=== PATIENT | male | born 1985 | race Caucasian/White ===

== ENCOUNTER 2017-01-28 22:43 | Inpatient (IN) | payer MEDICAID ==
[~2017-01-28] VITALS: Ht 175.3 cm; Wt 91.6 kg
[2017-01-28] MEDS ORDERED: MORPHINE SULFATE 4 MG/ML CPJ (NOT FOR IM USE) IV STA (23:54)
[2017-01-28] MEDS ORDERED: SODIUM CHLORIDE 0.9% 1,000 ML IV ONE (23:54)
[2017-01-28] MEDS ORDERED: ONDANSETRON HCL 4MG/2ML VIAL IV STA (23:54)
[2017-01-29] MEDS ORDERED: VANCOMYCIN 1 G PREMIX 200 ML IV ONE
[2017-01-29] MEDS ORDERED: PIPERACILLIN/TAZ 3.375G PREMIX 50 ML IV ONE
[2017-01-29 00:35] LABS: BASOPHILS % 0.6 % (0.0-2.0); EOSINOPHILS % 0.2 % (0.0-5.0); HEMATOCRIT. 34.5 % (42.0-52.0); LYMPHOCYTES % 16.3 % (20.0-50.0); MEAN CORPUSCULAR HEMOGLOBIN 28.8 pg (28.0-32.0); MEAN CORPUSCULAR VOLUME 82.4 fL (80.0-94.0); MEAN PLATELET VOLUME 6.9 fl (7.4-10.4); MONOCYTES % 7.8 % (2.0-8.0); NEUTROPHILS % 75.1 % (40.0-76.0); PLATELET 281 x1000/uL (130-400); RED BLOOD CELL COUNT 4.19 mill/uL (4.7-6.1); RED CELL DISTRIBUTION WIDTH 13.1 % (11.6-14.6)
[2017-01-29 00:43] LABS: CHLORIDE 95 mEq/L (98-107); INR 1.2
[2017-01-29 00:51] LABS: CARBON DIOXIDE 27 mEq/L (21-32)
[2017-01-29] MEDS ORDERED: BACITRACIN ZINC OINT UDPKT TOP ONE (02:30)
[2017-01-29] MEDS ORDERED: FENTANYL CITRATE/PF 50MCG/ML 2ML VIAL IV ONE ×2 (02:30→04:00)
[2017-01-29] MEDS ORDERED: LIDOCAINE HCL 1% 20ML VIAL (Pyxis) INJ MC ONE (02:30)
[2017-01-29] MEDS ORDERED: MIDAZOLAM HCL 2 MG/2 ML VIAL IV ONE ×2 (02:30→04:00)
[2017-01-29] MEDS ORDERED: MIDAZOLAM HCL 2 MG/2 ML VIAL ONE (03:53)
[2017-01-29 05:22] LABS: *AMPHETAMINES SCREEN URINE PRESUMTIVE POSITIVE (NEGATIVE); *BARBITURATES SCREEN URINE NEGATIVE (NEGATIVE); *BENZODIAZEPINES SCREEN URINE NEGATIVE (NEGATIVE); *COCAINE SCREEN URINE PRESUMTIVE POSITIVE (NEGATIVE); CANNABINOID URINE SCREEN NEGATIVE (NEGATIVE); METHADONE URINE SCREEN NEGATIVE (NEGATIVE); OPIATES URINE SCREEN PRESUMTIVE POSITIVE (NEGATIVE); PHENCYCLIDINE URINE SCREEN NEGATIVE (NEGATIVE)
[2017-01-29] MEDS ORDERED: ACETAMINOPHEN 325MG TABLET PO PRN ×2 (06:45→10:00)
[2017-01-29 08:00] VITALS: BP 99/56
[2017-01-29] MEDS: PIPERACILLIN/TAZ 3.375G PREMIX 50 ML IV SCH ×3 (08:30→22:26)
[2017-01-29] MEDS ORDERED: HYDROCODONE/ACETAMINOPHEN 5/325MG TABLET PO PRN (10:00)
[2017-01-29] MEDS ORDERED: IPRATROPIUM/ALBUTEROL 0.5-3(2.5)MG/3ML NEB INH PRN (10:00)
[2017-01-29] MEDS ORDERED: DIPHENHYDRAMINE 50MG/ML VIAL IV PRN (10:00)
[2017-01-29] MEDS ORDERED: NA PHOS,M-B/NA PHOS,DI-BA ENEMA 118ML PR PRN (10:00)
[2017-01-29] MEDS ORDERED: LORAZEPAM 1MG TABLET PO PRN (10:00)
[2017-01-29] MEDS ORDERED: DOCUSATE SODIUM 100MG CAPSULE PO PRN (10:00)
[2017-01-29] MEDS ORDERED: GUAIFENESIN 200MG/10ML SUGAR FREE UDC PO PRN (10:00)
[2017-01-29] MEDS ORDERED: ONDANSETRON HCL 4MG/2ML VIAL IV PRN (10:00)
[2017-01-29] MEDS ORDERED: PIPERACILLIN/TAZ 3.375G PREMIX 50 ML IV SCH (10:00)
[2017-01-29] MEDS ORDERED: CLONIDINE 0.1MG TABLET PO PRN (10:00)
[2017-01-29] MEDS: VANCOMYCIN 1500MG in DEXTROSE 5% WATER 250ML IV SCH ×2 (10:09→17:54)
[2017-01-29] MEDS: MULTIVITAMINS,THER W-MINERALS TABLET PO SCH (10:09)
[2017-01-29] MEDS: THIAMINE HCL 100MG TABLET PO SCH (10:09)
[2017-01-29] MEDS ORDERED: IOHEXOL-350 100 ML BOTTLE ONE (11:40)
[2017-01-29] MEDS ORDERED: SODIUM CHLORIDE 0.9% 10ML VIAL ONE (11:40)
[2017-01-29 12:00] VITALS: BP 93/50
[2017-01-29 15:56] LABS: CREATINE KINASE 76 IU/L (39-308); TROPONIN I < 0.02 ng/mL (0.00-0.04)
[2017-01-29 16:01] VITALS: BP 97/57
[2017-01-29 20:00] VITALS: BP 113/62
[2017-01-30] VITALS: BP 115/56
[2017-01-30] MEDS: VANCOMYCIN 1500MG in DEXTROSE 5% WATER 250ML IV SCH (01:24)
[2017-01-30] MEDS: PIPERACILLIN/TAZ 3.375G PREMIX 50 ML IV SCH ×4 (03:13→20:00)
[2017-01-30 04:00] VITALS: BP 112/60
[2017-01-30 06:11] LABS: BASOPHILS % 0.4 % (0.0-2.0); EOSINOPHILS % 2.1 % (0.0-5.0); HEMATOCRIT. 34.4 % (42.0-52.0); LYMPHOCYTES % 14.1 % (20.0-50.0); MEAN CORPUSCULAR HEMOGLOBIN 28.7 pg (28.0-32.0); MEAN CORPUSCULAR VOLUME 82.4 fL (80.0-94.0); MEAN PLATELET VOLUME 7.1 fl (7.4-10.4); MONOCYTES % 6.9 % (2.0-8.0); NEUTROPHILS % 76.5 % (40.0-76.0); PLATELET 274 x1000/uL (130-400); RED BLOOD CELL COUNT 4.17 mill/uL (4.7-6.1); RED CELL DISTRIBUTION WIDTH 13.1 % (11.6-14.6)
[2017-01-30 06:43] LABS: CARBON DIOXIDE 27 mEq/L (21-32); CHLORIDE 103 mEq/L (98-107); CREATINE KINASE 51 IU/L (39-308); HDL CHOLESTEROL 30 mg/dL (40-59); LDL CHOLESTEROL 74 mg/dL (5-100)
[2017-01-30 06:50] LABS: TROPONIN I < 0.02 ng/mL (0.00-0.04); VANCOMYCIN TROUGH 21.3 ug/mL (5.0-10.0)
[2017-01-30 08:00] VITALS: BP 109/65
[2017-01-30] MEDS: FOLIC ACID 1MG TABLET PO SCH (08:42)
[2017-01-30] MEDS: THIAMINE HCL 100MG TABLET PO SCH (08:42)
[2017-01-30] MEDS: MULTIVITAMINS,THER W-MINERALS TABLET PO SCH (08:42)
[2017-01-30 09:16] LABS: BG BASE EXCESS 1.1 mmol/L (-2.0-2.0); BG DEOXYHEMOGLOBIN 3.4 % (0.0-5.0); BG FRACTION INSPIRED OXYGEN 21; BG HCO3 ACT 24.2 mmol/L (22.0-26.0); BG METHEMOGLOBIN 0.3 % (0.0-1.5); BG OXYGEN SATURATION 96.6 % (92.0-98.5); BG OXYHEMOGLOBIN 96.3 % (94.0-97.0); BG PCO2 33.9 mmHg (35.0-45.0); BG PH 7.472 (7.350-7.450); BG PO2 87.2 mmHg (75.0-100.0); BG SAMPLE SITE RIGHT BRACHIAL; BG TOTAL HEMOGLOBIN 13.1 g/dL (12.0-18.0); BG VENT MODE ROOM AIR
[2017-01-30 12:00] VITALS: BP 105/53
[2017-01-30] MEDS: VANCOMYCIN 1,750 MG in DEXT 5% WATER 500 ML IV SCH ×2 (12:32→19:00)
[2017-01-30 14:33] LABS: CLARITY URINE CLEAR (CLEAR); COLOR URINE YELLOW (YELLOW); GLUCOSE URINE NEGATIVE (NEGATIVE); KETONES URINE NEGATIVE (NEGATIVE); LEUKOCYTE ESTERASE URINE NEGATIVE (NEGATIVE); NITRITE URINE NEGATIVE (NEGATIVE); OCCULT BLOOD URINE NEGATIVE (NEGATIVE); PH URINE 5.5 (4.5-8.0); PROTEIN URINE NEGATIVE (NEGATIVE); SPECIFIC GRAVITY URINE 1.067 (1.005-1.030)
[2017-01-30 20:00] VITALS: BP 103/53
[2017-01-31] VITALS: BP 112/70
[2017-01-31] MEDS: HYDROCODONE/ACETAMINOPHEN 10/325MG TABLET PO PRN ×2 (00:39→06:17)
[2017-01-31] MEDS: PIPERACILLIN/TAZ 3.375G PREMIX 50 ML IV SCH ×2 (02:00→07:54)
[2017-01-31] MEDS: VANCOMYCIN 1,750 MG in DEXT 5% WATER 500 ML IV SCH (03:00)
[2017-01-31 04:00] VITALS: BP 109/62
[2017-01-31 06:17] VITALS: BP 122/79
[2017-01-31] MEDS ORDERED: CLINDAMYCIN HCL 150MG CAPSULE PO SCH (08:30)
[2017-01-31] MEDS: FOLIC ACID 1MG TABLET PO SCH (09:02)
[2017-01-31] MEDS: MULTIVITAMINS,THER W-MINERALS TABLET PO SCH (09:02)
[2017-01-31] MEDS: THIAMINE HCL 100MG TABLET PO SCH (09:02)
== END 2017-01-31 12:14 | disposition left against medical advice (07) | DRG 720 ==
LOC: ER 22:43 → 6EST 01-29 04:02 → ENRESERV 01-29 04:21
PROVIDERS: ADMIT Internal Medicine; ATTEND Internal Medicine
PROC: 0H9CXZZ Drainage of Left Upper Arm Skin, External Approach (ICD-10-PCS; principal; 2017-01-29)
DX: A41.9 Sepsis, unspecified organism (principal); E44.1 Mild protein-calorie malnutrition; E87.1 Hypo-osmolality and hyponatremia; F11.10 Opioid abuse, uncomplicated; L03.114 Cellulitis of left upper limb; F15.10 Other stimulant abuse, uncomplicated; F14.10 Cocaine abuse, uncomplicated; F10.10 Alcohol abuse, uncomplicated; F17.200 Nicotine dependence, unspecified, uncomplicated; Z53.21 Procedure and treatment not carried out due to patient leaving prior to being seen by health care provider; L02.414 Cutaneous abscess of left upper limb; Z68.29 Body mass index [BMI] 29.0-29.9, adult
CPT/HCPCS: 10060; 36415; 36600; 71010; 73201; 80053; 80061; 80202; 80305; 81003; 82375; 82550; 82805; 83605; 84443; 84484; 85025; 85610; 87040; 87070; 87186; 87205; 93970; 96365; 96367; 96375; 96376; 99285; A4216; A4565; C1893; J2250; J2270; J2405; J2543; J3010; J3370; J3490; J7030; J7060; Q9967

== ENCOUNTER 2018-04-11 17:22 | Inpatient (IN) | payer MEDICAID ==
[~2018-04-11] VITALS: Ht 177.8 cm; Wt 94.8 kg
[2018-04-12] MEDS ORDERED: SODIUM CHLORIDE 0.9% 1000ML BAG (SEPSIS BOLUS) IV ONE (04:15)
[2018-04-12] MEDS ORDERED: DIPHENHYDRAMINE 50MG/ML VIAL IV ONE (04:15)
[2018-04-12] MEDS ORDERED: VANCOMYCIN 1 G PREMIX 200 ML IV ONE (04:15)
[2018-04-12] MEDS ORDERED: PIPERACILLIN/TAZ 3.375G PREMIX 50 ML IV ONE (04:15)
[2018-04-12] MEDS ORDERED: KETOROLAC 30MG/ML VIAL IV ONE (04:15)
[2018-04-12] MEDS ORDERED: FAMOTIDINE 20MG/2ML VIAL IV ONE (04:15)
[2018-04-12 05:38] LABS: CLARITY URINE CLEAR (CLEAR); COLOR URINE DARK YELLOW (YELLOW); KETONES URINE TRACE (NEGATIVE); LEUKOCYTE ESTERASE URINE NEGATIVE (NEGATIVE); NITRITE URINE NEGATIVE (NEGATIVE); OCCULT BLOOD URINE NEGATIVE (NEGATIVE); PH URINE 5.5 (4.5-8.0); PROTEIN URINE TRACE (NEGATIVE); SPECIFIC GRAVITY URINE 1.026 (1.005-1.030)
[2018-04-12 05:55] LABS: BASOPHILS % 0.3 % (0.0-2.0); EOSINOPHILS % 0.8 % (0.0-5.0); HEMATOCRIT. 34.8 % (42.0-52.0); HEMOGLOBIN. 12.6 g/dL (14.0-18.0); LYMPHOCYTES % 11.8 % (20.0-50.0); MEAN CORPUSCULAR HEMOGLOBIN 29.1 pg (28.0-32.0); MEAN CORPUSCULAR VOLUME 80.8 fL (80.0-94.0); MEAN PLATELET VOLUME 7.8 fl (7.4-10.4); MONOCYTES % 7.4 % (2.0-8.0); NEUTROPHILS % 79.7 % (40.0-76.0); PLATELET 399 x1000/uL (130-400); RED BLOOD CELL COUNT 4.31 mill/uL (4.7-6.1); RED CELL DISTRIBUTION WIDTH 12.9 % (11.6-14.6)
[2018-04-12 05:57] LABS: CHLORIDE 93 mEq/L (98-107)
[2018-04-12 06:02] LABS: INR 1.1; PROTHROMBIN TIME 11.1 sec (9.1-11.1)
[2018-04-12] MEDS ORDERED: ONDANSETRON HCL 4MG/2ML INJ IV PRN (11:00)
[2018-04-12] MEDS ORDERED: DOCUSATE SODIUM 100MG CAPSULE PO PRN (11:00)
[2018-04-12] MEDS ORDERED: IPRATROPIUM/ALBUTEROL 0.5-3(2.5)MG/3ML NEB INH PRN (11:00)
[2018-04-12 12:09] LABS: PHOSPHORUS 4.4 mg/dL (2.5-4.9)
[2018-04-12 12:42] LABS: *AMPHETAMINES SCREEN URINE PRESUMTIVE POSITIVE (NEGATIVE); *BARBITURATES SCREEN URINE NEGATIVE (NEGATIVE); *BENZODIAZEPINES SCREEN URINE NEGATIVE (NEGATIVE); *COCAINE SCREEN URINE NEGATIVE (NEGATIVE); CANNABINOID URINE SCREEN NEGATIVE (NEGATIVE); METHADONE URINE SCREEN NEGATIVE (NEGATIVE); OPIATES URINE SCREEN PRESUMTIVE POSITIVE (NEGATIVE); PHENCYCLIDINE URINE SCREEN NEGATIVE (NEGATIVE)
[2018-04-12] MEDS ORDERED: IOHEXOL-300 100 ML BOTTLE ONE (17:16)
[2018-04-12] MEDS ORDERED: DIPHENHYDRAMINE 50MG/ML VIAL IV PRN (19:15)
[2018-04-12 20:00] VITALS: BP 111/72
[2018-04-12] MEDS: SODIUM CHLORIDE 0.9% 1,000 ML IV SCH ×2 (20:48→23:10)
[2018-04-12] MEDS: HYDROCODONE/ACETAMINOPHEN 5/325MG TABLET PO PRN (21:42)
[2018-04-13] VITALS: BP_SYST 104; BP_SYST 163; BP_DIAS 54; BP_DIAS 93
[2018-04-13 04:00] VITALS: BP 127/72
[2018-04-13] MEDS: ACETAMINOPHEN 325MG TABLET PO PRN ×2 (04:28→19:01)
[2018-04-13] MEDS: SODIUM CHLORIDE 0.9% 1,000 ML IV SCH ×2 (06:48→16:48)
[2018-04-13 06:55] LABS: HEMATOCRIT. 33.3 % (42.0-52.0); HEMOGLOBIN. 11.8 g/dL (14.0-18.0); MEAN CORPUSCULAR HEMOGLOBIN 28.8 pg (28.0-32.0); MEAN CORPUSCULAR VOLUME 81.3 fL (80.0-94.0); PLATELET 296 x1000/uL (130-400); RED BLOOD CELL COUNT 4.09 mill/uL (4.7-6.1); RED CELL DISTRIBUTION WIDTH 12.7 % (11.6-14.6)
[2018-04-13 07:13] LABS: CHLORIDE 105 mEq/L (98-107)
[2018-04-13 08:00] VITALS: BP 132/64
[2018-04-13] MEDS ORDERED: VANCOMYCIN 1,750 MG in DEXT 5% WATER 250 ML IV ONE (09:00)
[2018-04-13] MEDS: HYDROCODONE/ACETAMINOPHEN 5/325MG TABLET PO PRN ×2 (10:21→18:53)
[2018-04-13 11:09] LABS: PLATELET ESTIMATE NORMAL
[2018-04-13 12:00] VITALS: BP 132/62
[2018-04-13 16:00] VITALS: BP 133/73
[2018-04-13] MEDS ORDERED: VANCOMYCIN 1,750 MG in DEXT 5% WATER 250 ML IV SCH (16:00)
[2018-04-13 20:00] VITALS: BP 98/63
[2018-04-13] MEDS: VANCOMYCIN 1500MG in DEXTROSE 5% WATER 250ML IV SCH (21:06)
[2018-04-14 02:14] LABS: CREATINE KINASE 27 IU/L (39-308); CREATINE KINASE MB FRACTION < 1.0 ng/mL (0.5-3.6)
[2018-04-14 04:00] VITALS: BP 110/86
[2018-04-14] MEDS: SODIUM CHLORIDE 0.9% 1,000 ML IV SCH ×2 (04:18→13:50)
[2018-04-14] MEDS: VANCOMYCIN 1500MG in DEXTROSE 5% WATER 250ML IV SCH ×2 (04:18→13:50)
[2018-04-14] MEDS: HYDROCODONE/ACETAMINOPHEN 5/325MG TABLET PO PRN ×3 (04:18→20:11)
[2018-04-14 05:39] VITALS: BP 105/68
[2018-04-14 08:32] VITALS: BP 104/56
[2018-04-14 09:35] LABS: HEPATITIS B SURFACE ANTIGEN NEGATIVE
[2018-04-14 09:36] LABS: HEPATITIS A AB IGM NEGATIVE (NEGATIVE)
[2018-04-14 11:19] VITALS: BP 127/72
[2018-04-14 11:39] LABS: HEMOGLOBIN. 11.4 g/dL (14.0-18.0); MEAN CORPUSCULAR HEMOGLOBIN 28.5 pg (28.0-32.0); MEAN CORPUSCULAR VOLUME 82.4 fL (80.0-94.0); MEAN PLATELET VOLUME 7.1 fl (7.4-10.4); PLATELET 267 x1000/uL (130-400); RED CELL DISTRIBUTION WIDTH 12.8 % (11.6-14.6)
[2018-04-14 12:36] LABS: CHLORIDE 103 mEq/L (98-107)
[2018-04-14 12:56] LABS: CREATINE KINASE 24 IU/L (39-308); CREATINE KINASE MB FRACTION < 1.0 ng/mL (0.5-3.6)
[2018-04-14 13:16] LABS: PLATELET ESTIMATE NORMAL
[2018-04-14 13:27] LABS: *AMPHETAMINES SCREEN URINE NEGATIVE (NEGATIVE); *BARBITURATES SCREEN URINE NEGATIVE (NEGATIVE); *BENZODIAZEPINES SCREEN URINE NEGATIVE (NEGATIVE); *COCAINE SCREEN URINE NEGATIVE (NEGATIVE); CANNABINOID URINE SCREEN NEGATIVE (NEGATIVE); METHADONE URINE SCREEN NEGATIVE (NEGATIVE); OPIATES URINE SCREEN PRESUMTIVE POSITIVE (NEGATIVE); PHENCYCLIDINE URINE SCREEN NEGATIVE (NEGATIVE)
[2018-04-14] MEDS ORDERED: LIDOCAINE HCL 1% 20ML VIAL (Pyxis) INJ ONE (15:17)
[2018-04-14] MEDS ORDERED: SODIUM BICARBONATE 4% (2.4MEQ) 5ML VIAL IV ONE (15:17)
[2018-04-14 20:00] VITALS: BP 108/70
[2018-04-14] MEDS: VANCOMYCIN 2,000 MG in DEXT 5% WATER 500 ML IV SCH (21:58)
[2018-04-15 04:00] VITALS: BP 131/82
[2018-04-15] MEDS: SODIUM CHLORIDE 0.9% 1,000 ML IV SCH (04:35)
[2018-04-15] MEDS: VANCOMYCIN 2,000 MG in DEXT 5% WATER 500 ML IV SCH (05:46)
[2018-04-15 06:16] VITALS: BP 131/82
[2018-04-15 08:10] LABS: HIV SCREEN 4G Non Reactive (Non Reactive)
== END 2018-04-15 08:45 | disposition left against medical advice (07) | DRG 720 ==
LOC: ER 17:22 → EDBEDREQTM 04-12 06:09 → EDBEDREQ 04-12 06:09 → EDBEDREQSVC 04-12 06:09 → ENRESERV 04-12 14:28 → 6EST 04-12 17:48 → 6WST 04-14 05:30
PROVIDERS: ADMIT Internal Medicine; ATTEND Internal Medicine
PROC: 02HV33Z Insertion of Infusion Device into Superior Vena Cava, Percutaneous Approach (ICD-10-PCS; principal; 2018-04-12)
PROC: B5181ZA Fluoroscopy of Superior Vena Cava using Low Osmolar Contrast, Guidance (ICD-10-PCS; 2018-04-12)
PROC: B548ZZA Ultrasonography of Superior Vena Cava, Guidance (ICD-10-PCS; 2018-04-12)
PROC: 0X973ZZ Drainage of Left Upper Extremity, Percutaneous Approach (ICD-10-PCS; 2018-04-14)
DX: A41.9 Sepsis, unspecified organism (principal); E87.8 Other disorders of electrolyte and fluid balance, not elsewhere classified; E44.1 Mild protein-calorie malnutrition; E87.1 Hypo-osmolality and hyponatremia; F11.20 Opioid dependence, uncomplicated; L02.414 Cutaneous abscess of left upper limb; L03.114 Cellulitis of left upper limb; F15.90 Other stimulant use, unspecified, uncomplicated; B19.20 Unspecified viral hepatitis C without hepatic coma; F17.210 Nicotine dependence, cigarettes, uncomplicated; I10 Essential (primary) hypertension; L53.9 Erythematous condition, unspecified; R07.9 Chest pain, unspecified; Z53.21 Procedure and treatment not carried out due to patient leaving prior to being seen by health care provider; Z68.30 Body mass index [BMI] 30.0-30.9, adult
CPT/HCPCS: 20611; 36415; 36569; 71045; 73201; 76937; 80048; 80061; 80202; 80305; 82550; 82553; 83036; 83605; 83735; 84100; 84145; 84443; 84484; 85007; 85027; 86140; 86705; 86709; 86803; 87077; 87340; 87389; 93005; 93306; 96365; 96375; 99285; C1725; J1200; J1885; J2543; J3370; J3490; J7030; J7040; J7060; Q9967

== ENCOUNTER 2023-02-07 04:44 | Emergency (ER) | payer BC, MEDICAID ==
[~2023-02-07] VITALS: Ht 180.3 cm; Wt 77.0 kg
[2023-02-07 05:00] VITALS: TEMP 98.2; O2SAT 97
[2023-02-07] MEDS ORDERED: MAGNESIUM/ALUMINUM HYDROXIDE/SIMETHICONE 30ML UDC PO ONE (05:45)
[2023-02-07] MEDS ORDERED: KETOROLAC 60MG/2ML VIAL IM ONE (05:45)
[2023-02-07] MEDS ORDERED: ONDANSETRON 4MG ODT PO ONE (05:45)
[2023-02-07] MEDS ORDERED: ONDANSETRON HCL 4MG/2ML INJ IV SCH (07:57)
[2023-02-07] MEDS ORDERED: MORPHINE SULFATE 4 MG/ML CPJ (NOT FOR IM USE) IV SCH (07:57)
[2023-02-07] MEDS ORDERED: KETOROLAC 60MG/2ML VIAL IM SCH (08:00)
[2023-02-07] MEDS ORDERED: MAGNESIUM/ALUMINUM HYDROXIDE/SIMETHICONE 30ML UDC PO SCH (08:00)
[2023-02-07] MEDS ORDERED: SODIUM CHLORIDE 0.9% 1,000 ML IV SCH (08:00)
[2023-02-07] MEDS ORDERED: ONDANSETRON 4MG ODT PO SCH (08:00)
[2023-02-07 08:27] LABS: CHLORIDE 100 mEq/L (98-107); INDEX HEMOLYSI 1 (1-3); INDEX ICTERIC 1 (1-4); INDEX LIPEMIC 1 (1-3); POTASSIUM 3.9 mEq/L (3.5-5.1); SODIUM 133 mEq/L (136-145)
[2023-02-07 08:36] LABS: ALANINE AMINOTRANSFERASE 30 IU/L (13-61); ALBUMIN 4.3 g/dL (3.4-5.0); ASPARTATE AMINOTRANSFERASE 24 IU/L (15-37); BILIRUBIN TOTAL 1.1 mg/dL (0.1-1.0); CALCIUM 9.8 mg/dL (8.5-10.1); CARBON DIOXIDE 27 mEq/L (21-32); CREATININE 0.5 mg/dL (0.6-1.3); ETHANOL BLOOD < 10 mg/dL (-10); GLUCOSE 157 mg/dL (70-105); PROTEIN TOTAL 9.2 g/dL (6.0-8.3); UREA NITROGEN BLOOD 17 mg/dL (7-21)
[2023-02-07 08:37] LABS: BASOPHILS % 0.2 % (0.0-2.0); EOSINOPHILS % 0.1 % (0.0-5.0); HEMOGLOBIN. 14.1 g/dL (14.0-18.0); MEAN CORPUSCULAR HEMOGLOBIN 29.1 pg (28.0-32.0); MEAN CORPUSCULAR HGB CONC 35.1 g/dL (31.0-37.0); MEAN CORPUSCULAR VOLUME 82.9 fL (80.0-94.0); MEAN PLATELET VOLUME 7.1 fl (7.4-10.4); MONOCYTES % 4.1 % (2.0-8.0); NEUTROPHILS % 87.6 % (40.0-76.0); PLATELET 230 x1000/uL (130-400); RED BLOOD CELL COUNT 4.83 mill/uL (4.7-6.1); RED CELL DISTRIBUTION WIDTH 13.5 % (11.6-14.6); WHITE BLOOD COUNT 7.9 x1000/uL (4.5-11.0)
[2023-02-07] MEDS ORDERED: KETOROLAC 15MG/ML VIAL IV ONE (08:45)
[2023-02-07 09:35] VITALS: BP 132/89; PULSE 63; RESP 11
== END 2023-02-07 11:28 | disposition left against medical advice (07) ==
LOC: ER 04:44 → EDBEDREQ 10:07 → EDBEDREQTM 10:07 → CANBEDREQ 11:25 → ER 11:28
DX: K56.609 Unspecified intestinal obstruction, unspecified as to partial versus complete obstruction (principal); K40.30 Unilateral inguinal hernia, with obstruction, without gangrene, not specified as recurrent; F15.10 Other stimulant abuse, uncomplicated
CPT/HCPCS: 80053; 80320; 83605; 83690; 85025; 36415; 74176; 99284; Q0162; J1885; J2405; Z7610 ×3; C1893; J2270; G0480

== ENCOUNTER 2024-05-31 01:29 | Emergency (ER) | payer BC, MEDICAID ==
[~2024-05-31] VITALS: Ht 175.3 cm; Wt 77.0 kg
[2024-05-31 01:35] VITALS: O2SAT 99
[2024-05-31 02:05] VITALS: BP 135/80; PULSE 97; RESP 18; TEMP 98; O2SAT 97
[2024-05-31] MEDS ORDERED: VANCOMYCIN 500 MG in DEXT 5% WATER 100 ML IV SCH (03:15)
[2024-05-31 03:24] LABS: CHLORIDE 100 mEq/L (98-107); POTASSIUM 3.4 mEq/L (3.5-5.1); SODIUM 135 mEq/L (136-145)
[2024-05-31 03:25] LABS: CALCIUM 9.4 mg/dL (8.7-10.4); CARBON DIOXIDE 29 mEq/L (21-32)
[2024-05-31 03:30] LABS: CREATININE 0.8 mg/dL (0.6-1.3); GLUCOSE 113 mg/dL (70-105); UREA NITROGEN BLOOD 15 mg/dL (9-23)
[2024-05-31 03:37] LABS: BASOPHILS % 0.3 % (0.0-2.0); EOSINOPHILS % 1.3 % (0.0-5.0); HEMATOCRIT. 35.1 % (42.0-52.0); HEMOGLOBIN. 12.1 g/dL (14.0-18.0); LYMPHOCYTES % 17.6 % (20.0-50.0); MEAN CORPUSCULAR HEMOGLOBIN 29.2 pg (28.0-32.0); MEAN CORPUSCULAR HGB CONC 34.5 g/dL (31.0-37.0); MEAN CORPUSCULAR VOLUME 84.7 fL (80.0-94.0); MEAN PLATELET VOLUME 6.9 fl (7.4-10.4); MONOCYTES % 5.8 % (2.0-8.0); PLATELET 266 x1000/uL (130-400); RED BLOOD CELL COUNT 4.14 mill/uL (4.7-6.1); RED CELL DISTRIBUTION WIDTH 14.5 % (11.6-14.6); WHITE BLOOD COUNT 8.8 x1000/uL (4.5-11.0)
[2024-05-31] MEDS ORDERED: PIPERACILLIN/TAZO 3.375G/50ML 50 ML IV SCH (06:00)
== END 2024-05-31 06:04 | disposition left against medical advice (07) ==
LOC: ER 01:29 → EDBEDREQTM 03:58 → EDBEDREQ 03:58 → ER 06:04
DX: L03.119 Cellulitis of unspecified part of limb (principal)
CPT/HCPCS: 99283; 80048; 85025; 36415; J3370; J7060

== ENCOUNTER 2024-05-31 10:10 | Inpatient (IN) | payer BC, MEDICAID ==
[~2024-05-31] VITALS: Ht 175.3 cm; Wt 90.7 kg
[2024-05-31 10:38] VITALS: O2SAT 100
[2024-05-31 13:21] LABS: BASOPHILS % 0.3 % (0.0-2.0); EOSINOPHILS % 2.3 % (0.0-5.0); HEMATOCRIT. 33.7 % (42.0-52.0); HEMOGLOBIN. 11.7 g/dL (14.0-18.0); LYMPHOCYTES % 17.2 % (20.0-50.0); MEAN CORPUSCULAR HEMOGLOBIN 29.3 pg (28.0-32.0); MEAN CORPUSCULAR HGB CONC 34.8 g/dL (31.0-37.0); MEAN CORPUSCULAR VOLUME 84.3 fL (80.0-94.0); MEAN PLATELET VOLUME 6.5 fl (7.4-10.4); MONOCYTES % 6.8 % (2.0-8.0); NEUTROPHILS % 73.4 % (40.0-76.0); PLATELET 231 x1000/uL (130-400); RED CELL DISTRIBUTION WIDTH 14.6 % (11.6-14.6); WHITE BLOOD COUNT 7.2 x1000/uL (4.5-11.0)
[2024-05-31 13:30] LABS: CARBON DIOXIDE 29 mEq/L (21-32); CHLORIDE 101 mEq/L (98-107); POTASSIUM 3.9 mEq/L (3.5-5.1); SODIUM 134 mEq/L (136-145)
[2024-05-31 13:31] LABS: CALCIUM 9.2 mg/dL (8.7-10.4)
[2024-05-31 13:35] LABS: CREATININE 0.7 mg/dL (0.6-1.3); GLUCOSE 96 mg/dL (70-105)
[2024-05-31 13:36] LABS: UREA NITROGEN BLOOD 13 mg/dL (9-23)
[2024-05-31 13:37] LABS: ALANINE AMINOTRANSFERASE 12 IU/L (10-49); ALBUMIN 3.9 g/dL (3.2-4.8); ASPARTATE AMINOTRANSFERASE 18 IU/L (<34)
[2024-05-31 13:38] LABS: BILIRUBIN TOTAL 1.3 mg/dL (0.1-1.0); PROTEIN TOTAL 8.7 g/dL (6.0-8.3)
[2024-05-31] MEDS ORDERED: VANCOMYCIN 1G PREMIX 200 ML IV SCH (14:30)
[2024-05-31] MEDS: PIPERACILLIN/TAZO 3.375G/50ML 50 ML IV NR (15:34)
[2024-05-31] MEDS: VANCOMYCIN 1GM PMX (XELLIA) 200 ML IV NR (16:45)
[2024-05-31 20:00] VITALS: BP 115/76; PULSE 80; RESP 20; TEMP 37.0296
[2024-05-31] MEDS ORDERED: IPRATROPIUM/ALBUTEROL 0.5-3(2.5)MG/3ML NEB HHN PRN (20:00)
[2024-05-31] MEDS ORDERED: DOCUSATE SODIUM 100MG CAPSULE PO PRN (20:00)
[2024-05-31] MEDS ORDERED: MAGNESIUM/ALUMINUM HYDROXIDE/SIMETHICONE 30ML UDC PO PRN (20:00)
[2024-05-31] MEDS ORDERED: GUAIFENESIN 200MG/10ML SUGAR FREE UDC PO PRN (20:00)
[2024-05-31] MEDS ORDERED: CLONIDINE 0.1MG TABLET PO PRN (20:00)
[2024-05-31] MEDS ORDERED: ONDANSETRON HCL 4MG/2ML INJ IV PRN (20:00)
[2024-05-31] MEDS ORDERED: ACETAMINOPHEN 325MG TABLET PO PRN ×2 (20:00)
[2024-05-31] MEDS: VANCOMYCIN 1GM PMX (XELLIA) 200 ML IV SCH (21:50)
[2024-05-31] MEDS: DEXT 5%/0.9% NACL 1,000 ML IV SCH (21:52)
[2024-05-31] MEDS: PIPERACILLIN/TAZO 3.375G/50ML 50 ML IV SCH (22:42)
[2024-06-01] VITALS: BP 102/60; PULSE 89; RESP 20; TEMP 37.28076; O2SAT 98
[2024-06-01 00:17] LABS: IRON 38 ug/dL (65-175)
[2024-06-01 00:20] LABS: CREATINE KINASE 39 IU/L (46-171); PHOSPHORUS 3.3 mg/dL (2.5-4.9); TOTAL IRON BINDING CAPACITY 211 ug/dl (250-425)
[2024-06-01 00:25] LABS: FOLIC ACID (FOLATE) SERUM 16.07 ng/mL (>5.38); VITAMIN B12 SERUM 809 pg/mL (211-911)
[2024-06-01 00:27] LABS: TROPONIN I HIGH SENSITIVITY < 4 ng/L (3.0-53)
[2024-06-01 00:28] LABS: FERRITIN 157 ng/mL (22-322)
[2024-06-01 00:38] LABS: HEPATITIS B SURFACE ANTIGEN NEGATIVE (Negative)
[2024-06-01 00:58] LABS: HEPATITIS A AB IGM NEGATIVE (Negative)
[2024-06-01 00:59] LABS: HEPATITIS B CORE AB IGM NEGATIVE (Negative)
[2024-06-01 01:00] LABS: HEPATITIS C AB REACTIVE (Pos) (Negative); HIV 1/2 AB P24AG Negative (Negative)
[2024-06-01 04:00] VITALS: BP 98/60; PULSE 74; RESP 20; TEMP 36.6696; O2SAT 99
[2024-06-01 08:00] VITALS: BP 105/61; PULSE 69; RESP 20; TEMP 36.72516; O2SAT 99
[2024-06-01 08:36] LABS: BASOPHILS % 0.2 % (0.0-2.0); EOSINOPHILS % 2.9 % (0.0-5.0); HEMATOCRIT. 30.7 % (42.0-52.0); HEMOGLOBIN. 10.2 g/dL (14.0-18.0); LYMPHOCYTES % 19.8 % (20.0-50.0); MEAN CORPUSCULAR HEMOGLOBIN 28.8 pg (28.0-32.0); MEAN CORPUSCULAR HGB CONC 33.3 g/dL (31.0-37.0); MEAN CORPUSCULAR VOLUME 86.4 fL (80.0-94.0); MEAN PLATELET VOLUME 6.7 fl (7.4-10.4); MONOCYTES % 10.3 % (2.0-8.0); NEUTROPHILS % 66.8 % (40.0-76.0); PLATELET 208 x1000/uL (130-400); RED BLOOD CELL COUNT 3.55 mill/uL (4.7-6.1); RED CELL DISTRIBUTION WIDTH 14.7 % (11.6-14.6); WHITE BLOOD COUNT 5.4 x1000/uL (4.5-11.0)
[2024-06-01 08:41] LABS: CREATINE KINASE 36 IU/L (46-171)
[2024-06-01 08:43] LABS: T4 FREE 1.63 ng/dL (0.89-1.76); THYROID STIMULATING HORMONE 0.34 uIU/mL (0.55-4.78)
[2024-06-01 09:04] LABS: TROPONIN I HIGH SENSITIVITY < 4 ng/L (3.0-53)
[2024-06-01] MEDS: PANTOPRAZOLE SODIUM 40 MG/VIAL IV SCH (09:49)
[2024-06-01 12:00] VITALS: BP 100/65; PULSE 76; RESP 19; TEMP 36.83628; O2SAT 98
[2024-06-01] MEDS: MAGNESIUM 2 G PREMIX 50 ML IV NR (12:25)
[2024-06-01 16:42] VITALS: PULSE 57; RESP 18; O2SAT 99
[2024-06-01] MEDS ORDERED: PIPERACILLIN/TAZO 3.375G/100ML 100 ML IV SCH (22:00)
[2024-06-01] MEDS: VANCOMYCIN 1GM PMX (XELLIA) 200 ML IV SCH (22:17)
[2024-06-06 04:10] LABS: *HIV-1 RNA BY PCR <20 copies/mL (.)
== END 2024-06-02 00:05 | disposition left against medical advice (07) | DRG 383 ==
LOC: ER 10:10 → 5WST 14:53 → EDBEDREQTM 15:05 → EDBEDREQ 15:05
PROVIDERS: ADMIT Internal Medicine; ATTEND Internal Medicine
DX: L03.116 Cellulitis of left lower limb (principal); M72.6 Necrotizing fasciitis; L03.115 Cellulitis of right lower limb; B19.20 Unspecified viral hepatitis C without hepatic coma; F19.10 Other psychoactive substance abuse, uncomplicated; D64.9 Anemia, unspecified; M86.8X6 Other osteomyelitis, lower leg; F17.210 Nicotine dependence, cigarettes, uncomplicated; L97.829 Non-pressure chronic ulcer of other part of left lower leg with unspecified severity; L97.819 Non-pressure chronic ulcer of other part of right lower leg with unspecified severity; Z53.29 Procedure and treatment not carried out because of patient's decision for other reasons; Z59.00 Homelessness unspecified
CPT/HCPCS: 36415; 80053; 80061; 82550; 82607; 82728; 82746; 83036; 83540; 83550; 83605; 83735; 84100; 84145; 84439; 84443; 84484; 85025; 86705; 86709; 87070; 87077; 87186; 87340; 87536; 93923; 99285; A4663; J2470; J2543; J3370; J3475; J7042

== ENCOUNTER 2024-07-07 19:03 | Emergency (ER) | payer BC, MEDICAID ==
[~2024-07-07] VITALS: Ht 175.3 cm; Wt 95.3 kg
[2024-07-07 19:04] VITALS: O2SAT 100
[2024-07-07 19:05] VITALS: TEMP 36.7; O2SAT 100
[2024-07-07] MEDS ORDERED: CLINDAMYCIN 600 MG in DEXTROSE 5% WATER 50 ML IV ONE (20:30)
[2024-07-07 22:10] LABS: BASOPHILS % 0.9 % (0.0-2.0); EOSINOPHILS % 2.1 % (0.0-5.0); HEMATOCRIT. 25.9 % (42.0-52.0); HEMOGLOBIN. 9.1 g/dL (14.0-18.0); LYMPHOCYTES % 19.8 % (20.0-50.0); MEAN CORPUSCULAR HEMOGLOBIN 28.6 pg (28.0-32.0); MEAN CORPUSCULAR HGB CONC 35.1 g/dL (31.0-37.0); MEAN CORPUSCULAR VOLUME 81.5 fL (80.0-94.0); MEAN PLATELET VOLUME 6.4 fl (7.4-10.4); MONOCYTES % 7.1 % (2.0-8.0); NEUTROPHILS % 70.1 % (40.0-76.0); PLATELET 277 x1000/uL (130-400); RED BLOOD CELL COUNT 3.18 mill/uL (4.7-6.1); RED CELL DISTRIBUTION WIDTH 14.6 % (11.6-14.6); WHITE BLOOD COUNT 7.4 x1000/uL (4.5-11.0)
[2024-07-07 22:17] LABS: CHLORIDE 100 mEq/L (98-107); POTASSIUM 3.9 mEq/L (3.5-5.1); SODIUM 134 mEq/L (136-145)
[2024-07-07 22:18] LABS: CARBON DIOXIDE 29 mEq/L (21-32)
[2024-07-07 22:19] LABS: CALCIUM 8.8 mg/dL (8.7-10.4)
[2024-07-07 22:20] VITALS: BP 105/66; PULSE 100; RESP 16
[2024-07-07] MEDS: KETOROLAC 30MG/ML VIAL IV STA (22:20)
[2024-07-07] MEDS: CLINDAMYCIN 600MG PREMIX 50 ML IV NR (22:21)
[2024-07-07 22:24] LABS: CREATININE 0.7 mg/dL (0.6-1.3); GLUCOSE 105 mg/dL (70-105); UREA NITROGEN BLOOD 14 mg/dL (9-23)
[2024-07-07] MEDS ORDERED: MORPHINE SULFATE 2 MG/ML INJ (NOT FOR IM USE) IV PRN (22:30)
[2024-07-07] MEDS ORDERED: ONDANSETRON HCL 4MG/2ML INJ IV PRN (22:30)
[2024-07-07] MEDS ORDERED: HYDROCODONE/ACETAMINOPHEN 5/325MG TABLET PO PRN (22:30)
[2024-07-07] MEDS ORDERED: IPRATROPIUM/ALBUTEROL 0.5-3(2.5)MG/3ML NEB NEB PRN (22:30)
[2024-07-07] MEDS ORDERED: ACETAMINOPHEN 325MG TABLET PO PRN (22:30)
[2024-07-07] MEDS ORDERED: CLONIDINE 0.1MG TABLET PO PRN (22:30)
[2024-07-07] MEDS ORDERED: SODIUM CHLORIDE 0.9% 1,000 ML IV SCH (22:30)
[2024-07-07] MEDS ORDERED: ZOLPIDEM TARTRATE 5MG TABLET PO PRN (22:30)
[2024-07-07] MEDS ORDERED: ENOXAPARIN 40MG/0.4ML SYR SUBCUT SCH (23:00)
[2024-07-07] MEDS ORDERED: PIPERACILLIN/TAZO 3.375G/50ML 50 ML IV SCH (23:00)
[2024-07-08] MEDS ORDERED: PANTOPRAZOLE SODIUM 40 MG/VIAL IV SCH (09:00)
== END 2024-07-07 22:22 | disposition left against medical advice (07) ==
LOC: ER 19:03 → EDBEDREQTM 21:28 → EDBEDREQ 21:28 → ER 22:22
DX: L03.115 Cellulitis of right lower limb (principal); L03.116 Cellulitis of left lower limb; F15.90 Other stimulant use, unspecified, uncomplicated; Z79.899 Other long term (current) drug therapy
CPT/HCPCS: 80048; 85025; 36415; 99283; Z7610 ×2; C1893; J1885; J3490; J7060